=== PATIENT | female | born 1995 | race Caucasian/White ===

== ENCOUNTER 2019-06-13 19:16 | Emergency (ER) | payer SELFPAY ==
[~2019-06-13] VITALS: Ht 167.6 cm; Wt 77.1 kg
[2019-06-13 19:27] VITALS: BP_SYST 129
[2019-06-13 21:16] LABS: BILIRUBIN,URINE NEGATIVE (NEGATIVE); CLARITY/URINE CLEAR (CLEAR); COLOR,URINE YELLOW (YELLOW); GLUCOSE,URINE NEGATIVE (NEGATIVE); KETONES,URINE NEGATIVE (NEGATIVE); LEUKOCYTE ESTERASE ,URINE TRACE (NEGATIVE); NITRITE, URINE NEGATIVE (NEGATIVE); PH,URINE 5.5 (5.0-8.0); PROTEIN URINE NEGATIVE (NEGATIVE); UROBILINOGEN,URINE 0.2 (0.2-1.0)
[2019-06-13 21:18] LABS: BLOOD, URINE TRACE (NEGATIVE)
[2019-06-13 21:34] LABS: BACTERIA,URINE FEW /HPF (None Seen)
--- NOTE | 2019-06-13 22:04 | NUR ---
Patient called for the first time, for bed assignment. Patient not found in ER hallway, lobby, or ER entrance. aware.
--- NOTE | 2019-06-13 22:04 | NUR ---
Note preethi in [facility] - 06/13/19 at 2206 by [facility]ED[facility] Patient to [facility] for evaluation. Side rails up.
--- NOTE | 2019-06-13 22:09 | NUR ---
Patient called for the second time, for bed assignment. Patient not found in ER hallway, lobby, or ER entrance. aware.
--- NOTE | 2019-06-13 22:14 | NUR ---
Patient called for a third time, for bed assignment. Patient not found in ER hallway, lobby, or ER entrance. aware.
== END 2019-06-13 22:14 | disposition left against medical advice (07) ==
LOC: SED 19:16
DX: R21 Rash and other nonspecific skin eruption (principal); R30.0 Dysuria; Z53.21 Procedure and treatment not carried out due to patient leaving prior to being seen by health care provider
CPT/HCPCS: 81000-TC; 87086; 99281